=== PATIENT | female | born 1970 | race Two or more races ===

== ENCOUNTER 2024-08-24 23:06 | Emergency (ER) | payer OTHER ==
[~2024-08-24] VITALS: Ht 157.5 cm; Wt 79.9 kg
--- NOTE | 2024-08-24 23:54 | ED.PDOC ---
Back pain HPI HPI Comments This patient is a pleasant but obese 54-year-old female who arrives to the ED today for evaluation of right quadriceps/thigh concerns status post lifting a wheelchair into a vehicle two days ago. Patient states she believes she pulled and possibly torn muscle in her leg when she had to lift a heavy wheelchair into a vehicle. Patient is able to ambulate. Patient denies any fever nausea or vomiting. Vital signs were stable on arrival. Time Seen by MD: 23:16 Reviewed Notes: Nurses Notes Allergies: Coded Allergies: NO KNOWN ALLERGIES (Unverified , 08/24/24) Information Source: Patient Mode of Arrival: Ambulatory Timing: Days Duration: Since onset Radiates to: Anterior: (R) Thigh Severity: Moderate Prehospital treatment: Pain Meds Quality: Aching, Burning Onset: Lifing Past Medical History PAST MEDICAL HISTORY: Denies Surgical History: Denies all surgeries [employer] History: No Pertinent [employer] History Family History Family History: Reviewed,noncontributory to illness, No family hx of Cancer, No family hx of DM, No family hx of Heart roseline, No family hx of HTN, No family hx ofKidney roseline, No family hx of Liver roseline, No family hx of Lung roseline, No family hx of Stroke Social History Smoker: Non-Smoker Alcohol: Denies ETOH Use Drugs: Denies Drug Use Lives In: Home Constitutional: denies: chills, diaphoresis, fatigue, fever, malaise, sweats, weakness, others EENTM: denies: blurred vision, double vision, ear bleeding, ear discharge, ear drainage, ear pain, ear ringing, eye pain, eye redness, hearing loss, mouth pain, mouth swelling, nasal discharge, nose bleeding, nose congestion, nose pain, photophobia, tearing, throat pain, throat swelling, voice changes, others Respiratory: denies: cough, hemoptysis, orthopnea, SOB at rest, shortness of breath, SOB with excertion, stridor, wheezing, others Cardiovascular: denies: chest pain, dizzy spells, diaphoresis, Dyspnea on exertion, edema, irregular heart beat, left arm pain, lightheadedness, palpitations, PND, syncope, others Gastrointestinal: denies: abdomen distended, abdominal pain, blood streaked bowels, constipated, diarrhea, dysphagia, difficulty swallowing, hematemesis, melena, nausea, poor appetite, poor fluid intake, rectal bleeding, rectal pain, vomiting, others Genitourinary: denies: abnormal vagina bleeding, burning, dyspareunia, dysuria, flank pain, frequency, hematuria, incontinence, pain, , vagina discharge, urgency, others Neurological: denies: dizziness, fainting, headache, left sided numbness, left sided weakness, numbness, paresthesia, pre-existing deficit, right sided numbness, right sided weakness, seizure, speech problems, tingling, tremors, weakness, others Musculoskeletal: reports: others (Medial and proximal right thigh pain); denies: back pain, gout, joint pain, joint swelling, muscle pain, muscle stiffness, neck pain Integumetry: denies: bruises, change in color, change in hair/nails, dryness, laceration, lesions, lumps, rash, wounds, others Allergic/Immunocompromised: denies: Difficulty Healing, Frequent Infections, Hives, Itching, others Hematologic/Lymphatic: denies: anemia, blood clots, easy bleeding, easy bruising, swollen glands, others Endocrine: denies: excessive hunger, excessive sweating, excessive thirst, excessive urination, flushing, intolerance to cold, intolerance to heat, unexplained weight gain, unexplained weight loss, others Psychiatric: denies: anxiety, bipolar disorder, depression, hopeless, panic disorder, schizophrenia, sleepless, suicidal, others Physical Exam General Appearance: Moderate Distress ([id number] distress due to right thigh pain concerns.), Normal HEENT: Normal ENT Inspection, Pharynx Normal, TMs Normal Neck: Full Range of Motion, Non-Tender, Normal, Normal Inspection Respiratory: Chest Non-Tender, Lungs Clear, No Accessory Muscle Use, No Respiratory Distress, Normal Breath Sounds Cardiovascular: No Edema, No JVD, No Murmur, No Gallop, Normal Peripheral Pulses, Regular Rate/Rhythm Breast Exam: Deferred Gastrointestinal: No Organomegaly, Non Tender, No Pulsatile Mass, Normal Bowel Sounds, Soft Genitalia: Deferred Pelvic: Deferred Rectal: Deferred Extremities: Other (Tenderness to palpation throughout anterior and medial aspect of the proximal right thigh. No edema or ecchymosis appreciated. D iffuse tenderness to palpation throughout. Moderate reduced range of motion.) Neurologic: Alert, medical technical writer II-XII nml as Tested, No Motor Deficits, Normal Affect, Normal Mood, No Sensory Deficits Cerebellar Function: Normal Reflexes: Normal Skin: Dry, Normal Color, Warm Lymphatic: No Adenopathy Was a procedure done? Was a procedure done?: No Back Pain Differential Dx Differential Diagnosis: Other (Muscle strain, muscle tear) X-Ray, Labs, Meds, VS Vital Signs Date Time Temp Pulse Resp B/P (MAP) Pulse Ox O2 Delivery O2 Flow Rate FiO2 08/24/24 23:38 98.2 83 17 141/93 (109) 97 98.2 X-Ray, Labs, Meds, VS Comment Spent time discussing injury with the patient. Advised that we do not do MRIs for soft tissue concerns unfortunately. Patient appears to have suffered a muscle strain of the thigh. Advised Tylenol and or Motrin as needed for symptomatic relief as well as ice therapy. Follow up with primary care provider as needed. Time of 1ST Reevaluation: 23:52 Reevaluation 1ST: Unchanged Consultation: PCP Patient Education/Counseling: Diagnosis, Treatment Family Education/Counseling: Diagnosis, Treatment Departure 1 Departure Time of Disposition: 23:52 Impression: Primary Impression: Muscle strain of thigh Disposition: 01 HOME / SELF CARE / HOMELESS Condition: Stable Additional Instructions: Advised patient utilize pain medication as needed for symptomatic relief as well as ice therapy. e-Prescriptions Hydrocodone-Acetaminophen (Hydrocodone Bitartrate/AC 5-325 mg) 1 Tab Tab 1 TAB PO Q6HP PRN, #15 TAB Prov: ILIR FOSTER PAC 08/25/24 Discharged With: Self Critical Care Note Critical Care Time?: No Stability Stability form required: No Heart Score Heart Score: Heart Score Response (Comments) Value History N/A 0 EKG N/A 0 Age N/A 0 Risk Factors N/A 0 Troponin N/A 0 Total 0 ILIR FOSTER PAC August 24, 2024 23:54
[2024-08-25] MEDS ORDERED: HYDR-4902 PO (00:06)
[2024-08-25 01:42] VITALS: BP 141/93; PULSE 83; RESP 16; TEMP 98.2; O2SAT 97
== END 2024-08-25 01:46 | disposition home or self-care (01) ==
LOC: ER 23:06
DX: S76.911A Strain of unspecified muscles, fascia and tendons at thigh level, right thigh, initial encounter (principal); E66.9 Obesity, unspecified; Z68.32 Body mass index [BMI] 32.0-32.9, adult; X50.9XXA Other and unspecified overexertion or strenuous movements or postures, initial encounter; Y93.89 Activity, other specified; Y92.89 Other specified places as the place of occurrence of the external cause; Y99.8 Other external cause status